=== PATIENT | male | born 1950 | race Caucasian/White ===

== ENCOUNTER 2025-05-28 10:30 | Emergency (ER) | payer MEDICARE, OTHER, SELFPAY ==
[2025-05-28 10:32] VITALS: BP 160/69; PULSE 77; RESP 18; TEMP 36.2; O2SAT 99
--- NOTE | 2025-05-28 11:12 | CRLHL7_ITS ---
For Patients: As a result of the Century Cures Act, medical imaging exams and procedure reports are released immediately into your electronic medical record. You may view this report before your referring provider. If you have questions, please contact your health care provider. INDICATION: Mild diffuse abdominal pain, nausea, diarrhea TECHNIQUE: CT abdomen and pelvis acquired with 95 cc Isovue 370 IV contrast. COMPARISON: CT chest PE study April 2023 FINDINGS: Lower chest: Patchy left basilar opacity. Small hiatal hernia. Liver: Normal in size and attenuation. Diffuse hepatic steatosis. No focal mass. Gallbladder and bile ducts: No stones or inflammation. No biliary dilatation. Pancreas: No mass or inflammation. Spleen: Normal in size. No masses. Adrenal glands: No suspicious mass. Kidneys: Bilateral kidneys are normal in size and show symmetric contrast enhancement. Multiple bilateral renal cysts. Largest at the lower pole of right kidney measures 6.7 cm and at the midpole of left kidney measures 5.7 cm. Nonobstructing bilateral nephrolithiasis. No hydronephrosis. GI tract: No findings of bowel obstruction. Normal appendix. Hernia small hiatal. Colonic diverticulosis. Vasculature: Abdominal aorta is of normal caliber. Advanced atherosclerosis of the iliac arteries. Lymph nodes: No lymphadenopathy. Peritoneum/Abdominal Wall: No free air or significant free fluid. Pelvis: Left inguinal hernia containing nondilated and nonobstructed bowel loops. Bones: Multilevel degenerative changes of the spine. IMPRESSION: No acute abnormality in abdomen and pelvis. Diffuse hepatic steatosis. Multiple bilateral renal cysts. Nonobstructing bilateral nephrolithiasis. Colonic diverticulosis. Hiatal hernia. Bowel containing left inguinal hernia Patchy airspace opacity at the left lung base, possibly atelectasis/infection/aspiration in the appropriate clinical setting. Please note that all CT scans at this facility use dose modulation, iterative reconstruction, and/or weight-based dosing when appropriate to reduce radiation dose to as low as reasonably achievable. Dictated by Reyes Goldstein MD @ 05/28/2025 12:53:09 PM (Electronically Signed)
--- NOTE | 2025-05-28 11:13 | ED.NAVMDI ---
HPI - Nausea/Vomiting/Diarrhea General Date Seen: 05/28/25 Chief complaint: Nausea/Vomiting Stated complaint: Vomiting Time Seen by Provider: 05/28/25 10:56 Source: patient Mode of arrival: ambulatory Limitations: no limitations History of Present Illness HPI Narrative: Patient is a 75-year-old male with history of diabetes, hypertension, coronary artery disease, multiple aortic aneurysm repairs presenting to the emergency department for nausea and vomiting. 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 He then vomited 2-3 times. He continued to be nauseated all day yesterday but no longer felt lightheaded. Was only able have a can of soup yesterday. The bili a piece of toast this morning. Has been drinking water she states. The nausea is still there baseline no further vomiting. He was told to come in by family members. He states he has had no further lightheadedness. Has had 1 episode of watery diarrhea this morning which she states is abnormal for him. Has not noticed any abdominal distention. States only previous abdominal surgeries was for his aortic aneurysms. States he is not having much abdominal pain. Does not taking anything for nausea denies fevers, chills, chest pain, shortness of breath, dizziness, fevers, dysuria, polyuria . He states he has no history of episodes of lightheadedness in the past. States this is the 1st time in this occurred. Related Data Home Medications ?Medication ?Instructions ?Recorded ?Confirmed albuterol sulfate .ROUTE 05/28/25 aspirin 81 mg capsule 81 mg PO DAILY 05/28/25 05/28/25 budesonide-formoterol inhalation 05/28/25 glipizide PO 05/28/25 lisinopril 05/28/25 metformin .ROUTE 05/28/25 metoprolol succinate 05/28/25 nitroglycerin .ROUTE 05/28/25 prednisone 05/28/25 sitagliptin phosphate .ROUTE 05/28/25 Allergies Allergy/AdvReac Type Severity Reaction Status Date / Time No Known Drug Allergies Allergy Verified 05/28/25 10:38 Review of Systems Status of ROS: Reports: 10 or more systems reviewed and unremarkable except as noted in History and below Exam Narrative: Exam Narrative: Const: Well-nourished, Well-developed, in no distress Eyes: PERRL, no conjunctival injection, and symmetrical lids HENT: Atraumatic external nose and ears. Moist mucous membranes. Neck: Symmetric, trachea midline, No thyromegaly. CVS: RRR, No murmurs or gallops. Peripheral pulses 2+ and equal in all extremities RESP: Unlabored respiratory effort. Clear to auscultation bilaterally. GI: Very mild diffuse abdominal tenderness, Nondistended, No rebound or guarding. MSK:Extremities w/o deformity, Normal Active ROM Skin: Warm, Dry. No rashes or lesions. Neuro: Normal Muscle tone, No focal neurological deficits. Psych: Awake, Alert, & Oriented x3. Appropriate mood and affect. Const: Vital Signs, click to edit/add: Vital Signs - 24 hr 05/28/25 10:32 05/28/25 12:36 Temperature 97.2 F L Pulse Rate [Pulse Oximeter] 77 69 Respiratory Rate 18 18 Blood Pressure [Ri t Upper Arm] 160/69 H 123/69 Pulse Oximetry 99 96 Oxygen Delivery Me thod Room Air Course Vital Signs Vital signs: Initial Vital Signs Temperature 97.2 F L 05/28/25 10:32 Temperature Source Temporal Artery Scan 05/28/25 10:32 Pulse Rate 77 05/28/25 10:32 Respiratory Rate 18 05/28/25 10:32 Blood Pressure 160/69 H 05/28/25 10:32 Blood Pressure Mean 99 05/28/25 10:32 Blood Pressure Position Sitting 05/28/25 10:32 Pulse Oximetry 99 05/28/25 10:32 Oxygen Delivery Method Room Air 05/28/25 10:32 Vital Signs Temperature 97.2 F L 05/28/25 10:32 Pulse Rate 77 05/28/25 10:32 Respiratory Rate 18 05/28/25 10:32 Blood Pressure 160/69 H 05/28/25 10:32 Pulse Oximetry 99 05/28/25 10:32 Oxygen Delivery Method Room Air 05/28/25 10:32 Temperature 97.2 F L 05/28/25 10:32 Pulse Rate 69 05/28/25 12:36 Respiratory Rate 18 05/28/25 12:36 Blood Pressure 123/69 05/28/25 12:36 Pulse Oximetry 96 05/28/25 12:36 Oxygen Delivery Method Room Air 05/28/25 10:32 Medications Administered Medications: Discontinued Medications Generic Name Dose Route Start Last Admin Trade Name Brenna PRN Reason Stop Dose Admin Ondansetron HCl 4 mg 05/28/25 12:12 05/28/25 12:19 Ondansetron 2 Mg/Ml Inj IVP 05/28/25 12:13 Not Given ONCE ONE MDM - Nausea/Vomiting/Diarrhea MDM Narrative Medical decision making narrative: Patient is a 75-year-old male presenting to emergency department for nausea and vomiting. He did have an episode diarrhea so this could be a gastroenteritis. Did have a liquid bowel movement not concerned for an SBO was rather low. He is not having very much if any abdominal pain so I have low concern for a ruptured aortic aneurysm. Is having no UTI symptoms. Will check for pancreatitis and gallbladder/liver disease. CBC, CMP, magnesium, lipase, viral swabs all ordered. Will do CT scan of the abdomen pelvis for better evaluation. 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 EKG shows inverted T-waves throughout. Cannot determine if these are new or not. He is currently asymptomatic though. Troponin within normal limits. Considering length of symptoms do not believe repeat troponin is necessary. Lab work returned showing no acute concerning abnormalities. The slightly elevated lipase but not high enough for pancreatitis. Viral swabs are negative. Sodium was very mildly low overall and if it requires emergent management. Zofran was ordered but he was not having any nausea so we declined it. He continues to be asymptomatic. Reviewed independently by myself and the radiologist is showing no acute concerning abdominal abnormalities. He does have some patchy airspace opacity in left lung base that could be atelectasis, infection, aspiration but he is not having any respiratory symptoms and this is unlikely to be clinically significant. Does have and hiatal hernia in the left inguinal hernia but these unlikely causing him issues at this time. Is multiple bilateral renal cyst. On my review vital signs are stable throughout time in in the emergency department. Oximetry stayed in the mid to high 90s. mental health advanced practice nurse showed no concerning arrhythmias. At this time he is doing well and I do believe he is safe for discharge. He is agreeable to this plan Lab Data Labs: Lab Results 05/28/25 05/28/25 Range/Units 11:13 11: WBC 7.77 (4.50-11.00) K/uL RBC 5.37 (4.30-5.90) m/uL Hgb 15.1 (13.5-17.5) gm/dL Hct 45.2 (37.0-53.0) % MCV 84 (80-100) fL MCH 28 (26-34) pg MCHC 33 (32-36) gm/dL RDW Coeff of Emy 14.0 (11.5-15.5) % Plt Count 168 (140-440) K/uL Neut % (Auto) 82.8 H (42.0-72.0) % Lymph % (Auto) 10.2 L (20-44) % Garden % (Auto) 5.3 (0.0-11.0) % Eos % (Auto) 0.5 (0.0-7.0) % Baso % (Auto) 0.3 (0.0-3.0) % Neut # (Auto) 6.40 (1.7-7.0) K/uL Lymph # (Auto) 0.80 L (0.90-2.90) K/uL Garden # (Auto) 0.40 (0.00-0.90) K/UL Eos # (Auto) 0.04 (0.00-0.50) K/uL Baso # (Auto) 0.02 (0.00-0.30) K/uL Abs Immat Gran (auto) 0.07 (0.00-0.30) K/uL Imm/Tot Granulo (auto) 0.9 % Sodium 134 L (135-149) mmol/L Potassium 4.1 (3.6-5.1) mmol/L Chloride 93 L (96-114) mmol/L Carbon Dioxide 29 (20-32) mmol/L Anion Gap 12 (7-15) mEq/L BUN 19 (7-30) mg/dL Creatinine 0.9 (0.5-1.5) mg/dL Estimated Creat Clear 62.70 Estimated GFR 90 ml/min Glucose 217 H (60-115) mg/dL Calcium 9.7 (8.4-10.6) mg/dL Magnesium 1.8 (1.5-2.6) mg/dL Total Bilirubin 0.9 (0.1-1.5) mg/dL AST 34 (12-35) U/L ALT 36 (4-50) U/L Alkaline Phosphatase 39 L (40-150) U/L Troponin I 0.03 (0.01-0.04) ng/mL Total Protein 7.2 (6.0-8.3) g/dL Albumin 4.4 (3.3-5.0) g/dL Lipase 388 H (23-300) U/L SARS-CoV-2 (PCR) Negative SARS-CoV-2 (Negative) Influenza Type A (PCR) Negative PCR FLU A (Negative) Influenza Type B (PCR) Negative PCR FLU B (Negative) RSV (PCR) Negative PCR RSV (Negative) Lab Acknowledgement Test Added POC Creatinine 1.0 (0.6-1.3) mg/dl Imaging Data CT scan abdomen and pelvis: Attestation: I have reviewed the pertinent imaging results. Radiologist's impression: No acute abnormality in abdomen and pelvis. Diffuse hepatic steatosis. Multiple bilateral renal cysts. Nonobstructing bilateral nephrolithiasis. Colonic diverticulosis. Hiatal hernia. Bowel containing left inguinal hernia Patchy airspace opacity at the left lung base, possibly atelectasis/infection/aspiration in the appropriate clinical setting. Please note that all CT scans at this facility use dose modulation, iterative reconstruction, and/or weight-based dosing when appropriate to reduce radiation dose to as low as reasonably achievable. Dictated by Reyes Goldstein MD @ 05/28/2025 12:53:09 PM ECG Data Attestation: I personally reviewed and interpreted this ECG as follows: Prior ECG tracings: not available for review Interpretation: Normal sinus rhythm with rate 71 beats per minute, right bundle-branch block, Discharge Plan Discharge Clinical Impression: Nausea & vomiting Qualifiers: Vomiting type: unspecified Qualified Code(s): R11.2 - Nausea with vomiting, unspecified Patient Disposition: Home, Self-Care Condition: Stable Instructions: Acute Nausea and Vomiting (DC) Additional Instructions: CT scan showed a hiatal hernia and a bowel containing left inguinal hernia. There is also an multiple renal cysts seen on your imaging. These are all incidental findings in were unlikely related to your current symptoms. As long as they are causing your any other issues he can just follow-up with your primary care provider about them. Return to emergency department for new or worsening symptoms Prescriptions: No Action lisinopril prednisone metoprolol succinate aspirin 81 mg capsule 81 mg PO DAILY budesonide-formoterol inhalation sitagliptin phosphate [Januvia] .ROUTE metformin .ROUTE glipizide PO nitroglycerin [Nitrostat] .ROUTE albuterol sulfate .ROUTE Follow Up/Referrals: Provider,Not a Local [Primary Care Provider, Family Practice] Stand Alone Forms: [employer] Info Instructions
[2025-05-28 11:37] LABS: Hematocrit* 45.2 % (37.0-53.0); Hemoglobin* 15.1 gm/dL (13.5-17.5); Immature Granulocytes Abs Auto 0.07 K/uL (0.00-0.30); Immature Granulocytes Pct Auto 0.9 %; Mean Corpuscular HGB Conc 33 gm/dL (32-36); Mean Corpuscular Hemoglobin 28 pg (26-34); Mean Corpuscular Volume 84 fL (80-100); RDW Coefficient of Variation % 14.0 % (11.5-15.5); Red Blood Count* 5.37 m/uL (4.30-5.90); White Blood Count* 7.77 K/uL (4.50-11.00)
[2025-05-28 11:41] LABS: Lymphocytes Absolute Auto 0.80 K/uL (0.90-2.90); Slide Review Reflex No
[2025-05-28 11:45] LABS: Creatinine, Point-of-Care* 1.0 mg/dl (0.6-1.3)
[2025-05-28 11:49] LABS: Albumin* 4.4 g/dL (3.3-5.0); Chloride* 93 mmol/L (96-114)
[2025-05-28 11:50] LABS: Potassium* 4.1 mmol/L (3.6-5.1); Sodium* 134 mmol/L (135-149)
[2025-05-28 11:52] LABS: Alanine Aminotransferase* 36 U/L (4-50); Anion Gap 12 mEq/L (7-15); Aspartate Amino Transferase* 34 U/L (12-35); Blood Urea Nitrogen* 19 mg/dL (7-30); Carbon Dioxide* 29 mmol/L (20-32); Creatinine* 0.9 mg/dL (0.5-1.5); Est. Creatinine Clearance* 62.70; Estimated Glomerular Filt Rate 90 ml/min
[2025-05-28 11:53] LABS: Alkaline Phosphatase* 39 U/L (40-150); Bilirubin Total* 0.9 mg/dL (0.1-1.5); Calcium* 9.7 mg/dL (8.4-10.6); Glucose* 217 mg/dL (60-115); Total Protein* 7.2 g/dL (6.0-8.3)
[2025-05-28 12:11] LABS: PCR FLU A Negative PCR FLU A (Negative); PCR FLU B Negative PCR FLU B (Negative); PCR RSV Negative PCR RSV (Negative); SARS PCR* Negative SARS-CoV-2 (Negative)
[2025-05-28 12:36] VITALS: BP 123/69; PULSE 69; RESP 18; O2SAT 96
== END 2025-05-28 13:30 | disposition home or self-care (01) ==
PROVIDERS: Emergency Provider Student in an Organized Health Care Education/Training Program
DX: R11.2 Nausea with vomiting, unspecified (principal); K40.90 Unilateral inguinal hernia, without obstruction or gangrene, not specified as recurrent
CPT/HCPCS: 36415; 74177; 80053; 82565; 83690; 83735; 84484; 85025; 87631; 93005; 99284; 99285; Q9967